=== PATIENT | female | born 1970 | race Caucasian/White ===

== ENCOUNTER 2022-07-16 12:12 | Observation (INO) | payer SELFPAY ==
--- NOTE | 2022-07-16 12:21 | ERPHSYRPT ---
- History of Present Illness Time Seen by Provider: 07/16/22 12:21 Source: patient Exam Limitations: no limitations Physician History: This is a 52-year-old white female who presents with right calf pain for 3 to 4 days. She has no history of any bleeding or clotting disorders. She is a long- term smoker. She has not taken any long trips either in the car or by plane. She did not injure her right calf. Patient has chronic shortness of breath and she thinks maybe in the last several days has been an increase in her shortness of breath. She has not had any chest pain. She has had no hemoptysis. She has not had any fevers. She denies cough. Method of Injury: other (No injury) Occurred: days ago (Approximately 3 to 4 days) Quality: constant, aching Severity of Pain-Max: moderate Severity of Pain-Current: moderate Lower Extremities Pain: leg: right (Calf) Modifying Factors: Improves With: movement Associated Symptoms: other (Right calf hurts to bear weight) Allergies/Adverse Reactions: No Known Drug Allergies Allergy (Verified 07/16/22 12:21) Home Medications: Duloxetine HCl 30 mg [Cymbalta 30 MG Capsule] 1 cap PO DAILY 07/16/22 [History] Travel Risk - International Travel Have you traveled outside of the country in past 3 weeks: No - Coronavirus Screening Are you exhibiting any of the following symptoms?: No Close contact with a COVID-19 positive Pt in past 14-21 Days: No - Review of Systems Constitutional: No Symptoms Eyes: No Symptoms Ears, Nose, & Throat: No Symptoms Respiratory: No Symptoms Cardiac: No Symptoms Abdominal/Gastrointestinal: No Symptoms Genitourinary Symptoms: No Symptoms Musculoskeletal: Other (Painful right calf) Skin: No Symptoms Neurological: No Symptoms Psychological: No Symptoms Endocrine: No Symptoms Hematologic/Lymphatic: No Symptoms Immunological/Allergic: No Symptoms All Other Systems: Reviewed and Negative - Past Medical History Pertinent Past Medical History: Yes - Past Surgical History Past Surgical History: Yes - Nursing Vital Signs Nursing Vital Signs: Initial Vital Signs Temperature 99 F 07/16/22 12:23 Pulse Rate 91 H 07/16/22 12:23 Respiratory Rate 20 07/16/22 12:23 Blood Pressure 149/96 07/16/22 12:23 O2 Sat by Pulse Oximetry 95 07/16/22 12:23 Pain Scale Pain Intensity 2 - Physical Exam General Appearance: no apparent distress, alert, anxiety, obese Eyes, Ears, Nose, Throat Exam: normal ENT inspection, moist mucous membranes Neck Exam: normal inspection, non-tender, supple, full range of motion Cardiovascular/Respiratory Exam: chest non-tender, no respiratory distress Gastrointestinal/Abdominal Exam: non-tender Back Exam: normal inspection, normal range of motion, No CVA tenderness, No vertebral tenderness Hips Exam: bilateral: non-tender, normal inspection, normal range of motion, no evidence of injury Legs Exam: right leg: soft tissue tenderness (Right posterior calf), left leg: non-tender, bilateral leg: normal inspection, normal range of motion, no evidence of injury Knees Exam: bilateral knee: non-tender, normal inspection, normal range of motion, no evidence of injury Ankle Exam: bilateral ankle: non-tender, normal inspection, normal range of motion, no evidence of injury Foot Exam: bilateral foot: non-tender, normal inspection, normal range of motion, no evidence of injury Neuro/Tendon Exam: normal sensation, normal motor functions, normal tendon fun ctions Mental Status Exam: alert, oriented x 3, cooperative Skin Exam: normal color, warm, dry SpO2 Interpretation: normal O2 Delivery: Room Air - Course Nursing assessment & vital signs reviewed: Yes EKG Interpreted by Me: RATE (80), Sinus Rhythm, NORMAL AXIS, NORMAL INTERVALS, NORMAL QRS, Non-specific ST Changes, Other (No acute ischemic changes on today's EKG.) Ordered Tests: Active Orders 24 hr Category Date Time Status EKG-ER Only STAT Care 07/16/22 12:57 Active IV Insertion STAT Care 07/16/22 12:57 Active Oxygen-ED Only Nasal Cannula 2 lpm Care 07/16/22 13:30 Active Pulse Oximetry (ED) STAT Care 07/16/22 12:57 Active CHEST WITH CONTRAST [CT] Stat Exams 07/16/22 13:32 Completed VENOUS UNILAT/LIMITED EXTREMIT [US] Stat Exams 07/16/22 13:32 Completed CBC W DIFF Stat Lab 07/16/22 12:50 Completed CMP Stat Lab 07/16/22 12:50 Completed D-DIMER QUANTITATIVE Stat Lab 07/16/22 12:50 Completed TROPONIN Q4H Lab 07/16/22 12:50 Completed TROPONIN Q4H Lab 07/16/22 17:00 Ordered TROPONIN Q4H Lab 07/16/22 21:00 Ordered Medication Summary Discontinued Medications Generic Name Dose Route Start Last Admin Trade Name Bradley PRN Reason Stop Dose Admin Enoxaparin Sodium 100 mg 07/16/22 14:35 07/16/22 14:41 Enoxaparin Sodium 120 Mg/0.8 Ml Syringe SQ 07/16/22 14:36 100 mg STAT STA Administration Enoxaparin Sodium Confirm 07/16/22 14:38 Enoxaparin Sodium 120 Mg/0.8 Ml Syringe Administered 07/16/22 14:39 Dose 120 mg SQ .STK-MED ONE Hydromorphone HCl 1 mg 07/16/22 12:59 07/16/22 13:02 Hydromorphone 1 Mg/1ml Inj 1 Mg/Ml Syringe IV 07/16/22 13:00 1 mg STAT ONE Administration Hydromorphone HCl Confirm 07/16/22 13:02 Hydromorphone 1 Mg/1ml Inj 1 Mg/Ml Syringe Administered 07/16/22 13:03 Dose 1 mg .ROUTE .STK-MED ONE Ondansetron HCl 4 mg 07/16/22 12:57 07/16/22 13:02 Ondansetron Hcl 4 Mg/2 Ml Vial IV 07/16/22 12:58 4 mg STAT ONE Administration Ondansetron HCl Confirm 07/16/22 13:01 Ondansetron Hcl 4 Mg/2 Ml Vial Administered 07/16/22 13:02 Dose 4 mg .ROUTE .STK-MED ONE Lab/Rad Data: Laboratory Result Diagrams 07/16/22 12:50 07/16/22 12:50 Laboratory Results 07/16/22 07/16/22 07/16/22 Range/Units 12:50 12:50 12:50 WBC (4.0-10.5) x10^3/uL RBC (4.1-5.4) x10^6/uL Hgb (12.0-16.0) g/dL Hct (35-47) % MCV (78-100) fL MCH (26-32) pg MCHC (32-36) g/dL RDW (11.5-14.0) % Plt Count (150-450) x10^3/uL MPV (7.5-11.0) fL Gran % (36.0-66.0) % Immature Gran % (Auto) (0.00-0.4) % Nucleat RBC Rel Count (0.00-0.1) % Eos # (Auto) (0-0.5) x10^3/uL Immature Gran # (Auto) (0.00-0.03) x10^3u/L Absolute Lymphs (auto) (1.0-4.6) x10^3/uL Absolute Monos (auto) (0.0-1.3) x10^3/uL Absolute Nucleated RBC (0.00-0.01) x10^3u/L Lymphocytes % (24.0-44.0) % Monocytes % (0.0-12.0) % Eosinophils % (0.00-5.0) % Basophils % (0.0-0.4) % Absolute Granulocytes (1.4-6.9) x10^3/uL Basophils # (0-0.4) x10^3/uL D-Dimer 12.08 H* (0.0-0.50) mg/L Sodium 137 (137-145) mmol/L Potassium 4.5 (3.5-5.1) mmol/L Chloride 105 (98-107) mmol/L Carbon Dioxide 25 (22-30) mmol/L Anion Gap 11.1 (5-15) MEQ/L BUN 20 H (7-17) mg/dL Creatinine 0.66 (0.52-1.04) mg/dL Estimated GFR > 60.0 ML/MIN Glucose 113 H (74-106) mg/dL Calcium 9.4 (8.4-10.2) mg/dL Total Bilirubin 0.60 (0.2-1.3) mg/dL AST 32 (14-36) U/L ALT 50 H (0-35) U/L Alkaline Phosphatase 86 (38-126) U/L Troponin I 0.014 (0.000-0.034) ng/mL Serum Total Protein 7.5 (6.3-8.2) g/dL Albumin 4.5 (3.5-5.0) g/dL 07/16/22 Range/Units 12:50 WBC 11.6 H (4.0-10.5) x10^3/uL RBC 4.92 (4.1-5.4) x10^6/uL Hgb 14.6 (12.0-16.0) g/dL Hct 44.2 (35-47) % MCV 89.8 (78-100) fL MCH 29.7 (26-32) pg MCHC 33.0 (32-36) g/dL RDW 12.7 (11.5-14.0) % Plt Count 192 (150-450) x10^3/uL MPV 9.5 (7.5-11.0) fL Gran % 71.2 H (36.0-66.0) % Immature Gran % (Auto) 0.3 (0.00-0.4) % Nucleat RBC Rel Count 0.0 (0.00-0.1) % Eos # (Auto) 0.31 (0-0.5) x10^3/uL Immature Gran # (Auto) 0.04 H (0.00-0.03) x10^3u/L Absolute Lymphs (auto) 1.96 (1.0-4.6) x10^3/uL Absolute Monos (auto) 0.98 (0.0-1.3) x10^3/uL Absolute Nucleated RBC 0.00 (0.00-0.01) x10^3u/L Lymphocytes % 16.9 L (24.0-44.0) % Monocytes % 8.5 (0.0-12.0) % Eosinophils % 2.7 (0.00-5.0) % Basophils % 0.4 (0.0-0.4) % Absolute Granulocytes 8.25 H (1.4-6.9) x10^3/uL Basophils # 0.05 (0-0.4) x10^3/uL D-Dimer (0.0-0.50) mg/L Sodium (137-145) mmol/L Potassium (3.5-5.1) mmol/L Chloride (98-107) mmol/L Carbon Dioxide (22-30) mmol/L Anion Gap (5-15) MEQ/L BUN (7-17) mg/dL Creatinine (0.52-1.04) mg/dL Estimated GFR ML/MIN Glucose (74-106) mg/dL Calcium (8.4-10.2) mg/dL Total Bilirubin (0.2-1.3) mg/dL AST (14-36) U/L ALT (0-35) U/L Alkaline Phosphatase (38-126) U/L Troponin I (0.000-0.034) ng/mL Serum Total Protein (6.3-8.2) g/dL Albumin (3.5-5.0) g/dL - Progress Progress: improved Progress Note: 07/16/22 14:51 Venous ultrasound right lower extremity shows popliteal and femoral DVT. CTA of chest shows extensive, nonoccluding, bilateral pulmonary emboli left side greater than right. There is no consolidation or infarction present. Medical decision making: I spoke with Dr. Lopez who is on for service. The plan is to place the patient in observation and to provide her with Lovenox subcutaneously. Patient will be on a monitored bed overnight and will receive Lovenox and repeat labs in the morning. Discussed with : Rosalinda Counseled pt/family regarding: lab results, diagnosis, rad results - Departure Departure Disposition: Home Clinical Impression: Bilateral pulmonary embolism, Right leg DVT Condition: Stable Critical Care Time: Yes Critical Care Time(excluding separately billable procedures): Critical 30-74 mins (D minutes) Referrals: ARTHUR OWEN [Primary Care Provider] - Follow up/PCP as directed
[2022-07-16] MEDS ORDERED: Zofran 4 MG/2 ML VIAL IV ONE (12:57)
[2022-07-16] MEDS ORDERED: Hydromorphone 1 mg/ml Injection IV ONE ×2 (12:59→16:13)
[2022-07-16] MEDS ORDERED: Zofran 4 MG/2 ML VIAL ONE (13:01)
[2022-07-16] MEDS ORDERED: Hydromorphone 1 mg/ml Injection ONE ×2 (13:02→16:15)
[2022-07-16 13:06] LABS: Absolute Neutrophil Ct (ANC) 8.25 x10^3/uL (1.4-6.9); Basophil (Absolute #) 0.05 x10^3/uL (0-0.4); Eosinophil % 2.7 % (0.00-5.0); Eosinophil (Absolute #) 0.31 x10^3/uL (0-0.5); Hematocrit 44.2 % (35-47); Hemoglobin 14.6 g/dL (12.0-16.0); Lymphocyte (Absolute #) 1.96 x10^3/uL (1.0-4.6); Lymphocytes % 16.9 % (24.0-44.0); Mean Cell Volume 89.8 fL (78-100); Mean Corpuscular Hemoglobin 29.7 pg (26-32); Mean Platelet Volume 9.5 fL (7.5-11.0); Monocyte (Absolute #) 0.98 x10^3/uL (0.0-1.3); Monocytes % 8.5 % (0.0-12.0); Neutrophil % 71.2 % (36.0-66.0); Platelet Count 192 x10^3/uL (150-450); Red Blood Count 4.92 x10^6/uL (4.1-5.4); Red Cell Distribution Width 12.7 % (11.5-14.0); White Blood Count 11.6 x10^3/uL (4.0-10.5)
[2022-07-16 13:13] LABS: ALBUMIN 4.5 g/dL (3.5-5.0); ALKALINE PHOSPHATASE 86 U/L (38-126); ANION GAP 11.1 MEQ/L (5-15); BLOOD UREA NITROGEN 20 mg/dL (7-17); CHLORIDE 105 mmol/L (98-107); Calcium 9.4 mg/dL (8.4-10.2); Carbon Dioxide 25 mmol/L (22-30); Creatinine 1 0.66 mg/dL (0.52-1.04); EST GLOMERULAR FILTRATION RATE > 60.0 ML/MIN; Glucose 113 mg/dL (74-106); Potassium 4.5 mmol/L (3.5-5.1); SGOT/AST 32 U/L (14-36); SGPT/ALT 50 U/L (0-35); SODIUM 137 mmol/L (137-145); Total Protein 7.5 g/dL (6.3-8.2)
--- NOTE | 2022-07-16 14:08 | XRAY ---
Indication: Pain. Two-dimensional sonogram and color Doppler imaging of the major venous vessels of the right leg performed. Comparison: None Occluding thrombus seen in the mid to distal femoral and popliteal veins. No thrombus seen in the remaining common femoral, deep femoral, proximal femoral, and posterior tibial veins. Impression: Occluding DVT in the femoral and popliteal veins.
[2022-07-16] MEDS ORDERED: ENOXAPARIN SODIUM SQ STA (14:35)
[2022-07-16] MEDS ORDERED: ENOXAPARIN SODIUM SQ ONE (14:38)
--- NOTE | 2022-07-16 14:47 | XRAY ---
Indication: Short of breath and elevated d-dimer. Right leg DVT. Multiple contiguous axial images obtained through the chest using 100 cc Isovue 370 contrast and PE protocol. Comparison: None Good opacification of the pulmonary arteries to include the lobar and segmental branches. Distal left main pulmonary artery demonstrates nonoccluding pulmonary emboli extending into all lobar and segmental branches. Additional nonoccluding pulmonary emboli seen in the lobar/segmental branches of the right upper and right lower lobes. Heart is not enlarged. Aorta is normal in course and caliber. Small subcarinal and tiny right infrahilar calcified nodes. No pathologic mediastinal/hilar lymphadenopathy. Lungs demonstrates mild bilateral dependent atelectasis and right hemidiaphragm elevation. Right middle lobe demonstrates minimal subpleural fibrosis/scarring and tiny calcified granuloma. No suspicious pulmonary mass, infiltrate, consolidation, or effusion. Bony thorax intact with minimal degenerative changes throughout the spine. Limited upper abdomen demonstrates diffuse fatty liver. Impression: 1. Extensive nonoccluding bilateral pulmonary emboli, left lung greater than right. No consolidation/infarct. 2. Incidental right middle lobe fibrosis/scarring, right hemidiaphragm elevation, fatty liver, and old granulomatous disease.
[2022-07-16 15:28] LABS: INFLUENZA A NEGATIVE (NEGATIVE); INFLUENZA B NEGATIVE (NEGATIVE); RESPIRATORY SYNCTIAL VIRUS NEGATIVE (Negative); SARS-CoV-2 Xpert Express NEGATIVE (NEGATIVE)
[2022-07-16] MEDS ORDERED: TYLENOL 325 MG PO PRN (16:29)
[2022-07-16] MEDS ORDERED: Zofran 4 MG/2 ML VIAL IV PRN (16:29)
[2022-07-16] MEDS: Cymbalta 30 MG Capsule PO SCH (17:13)
[2022-07-16] MEDS: Hydromorphone 1 mg/ml Injection IV PRN (21:14)
[2022-07-16] MEDS ORDERED: ENOXAPARIN SODIUM SQ SCH (22:00)
[2022-07-17] MEDS: ENOXAPARIN SODIUM SQ SCH ×2 (00:15→09:06)
[2022-07-17] MEDS: Hydromorphone 1 mg/ml Injection IV PRN ×2 (02:55→08:38)
[2022-07-17 04:47] LABS: Absolute Neutrophil Ct (ANC) 7.16 x10^3/uL (1.4-6.9); Basophil (Absolute #) 0.06 x10^3/uL (0-0.4); Eosinophil % 3.8 % (0.00-5.0); Eosinophil (Absolute #) 0.41 x10^3/uL (0-0.5); Hematocrit 43.3 % (35-47); Hemoglobin 13.9 g/dL (12.0-16.0); Lymphocyte (Absolute #) 2.15 x10^3/uL (1.0-4.6); Lymphocytes % 19.8 % (24.0-44.0); Mean Cell Volume 92.3 fL (78-100); Mean Corpuscular Hemoglobin 29.6 pg (26-32); Mean Corpuscular Hgb Concent. 32.1 g/dL (32-36); Mean Platelet Volume 9.3 fL (7.5-11.0); Monocyte (Absolute #) 1.06 x10^3/uL (0.0-1.3); Monocytes % 9.7 % (0.0-12.0); Neutrophil % 65.7 % (36.0-66.0); Platelet Count 186 x10^3/uL (150-450); Red Blood Count 4.69 x10^6/uL (4.1-5.4); Red Cell Distribution Width 12.7 % (11.5-14.0); White Blood Count 10.9 x10^3/uL (4.0-10.5)
[2022-07-17 05:12] LABS: ALBUMIN 4.2 g/dL (3.5-5.0); ALKALINE PHOSPHATASE 79 U/L (38-126); ANION GAP 9.3 MEQ/L (5-15); BLOOD UREA NITROGEN 21 mg/dL (7-17); CHLORIDE 100 mmol/L (98-107); Calcium 8.7 mg/dL (8.4-10.2); Carbon Dioxide 29 mmol/L (22-30); Creatinine 1 0.77 mg/dL (0.52-1.04); EST GLOMERULAR FILTRATION RATE > 60.0 ML/MIN; Glucose 125 mg/dL (74-106); Potassium 4.2 mmol/L (3.5-5.1); SGOT/AST 31 U/L (14-36); SGPT/ALT 47 U/L (0-35); SODIUM 134 mmol/L (137-145); Total Protein 7.3 g/dL (6.3-8.2)
[2022-07-17] MEDS: Cymbalta 30 MG Capsule PO SCH ×2 (08:37→08:48)
--- NOTE | 2022-07-17 08:40 | PCM.HP ---
History of Present Illness - Chief Complaint Chief Complaint: Bilateral pulmonary emboli History of Present Illness: is a 52 year old female who presented to the ER with pain in her right calf, worsening in severity for 3-4 days prior to admission. She also notes increasing shortness of breath, mild pain in her chest. she has a remote history of lung cancer in remission, continues to smoke and currently has no health insurance. she denies any HRT, only takes cymbalta for depression. - Review of Systems Constitutional: No Fever, No Chills Respiratory: Short Of Breath Cardiac: Chest Pain Abdominal/Gastrointestinal: No Abdominal Pain, No Nausea, No Vomiting, No Diarrhea Musculoskeletal: Other (right calf pain) Skin: No Rash All Other Systems: Reviewed and Negative Medications & Allergies Home Medications: Home Medication List Duloxetine HCl 30 mg [Cymbalta 30 MG Capsule] 30 mg PO 0900,1700 07/16/22 [History Confirmed 07/16/22] Allergies/Adverse Reactions: Allergies Allergy/AdvReac Type Severity Reaction Status Date / Time No Known Drug Allergies Allergy Verified 07/16/22 12:21 - Past Medical History Past Medical History: Yes Neurological History: No Pertinent History ENT History: No Pertinent History Cardiac History: No Pertinent History Respiratory History: Lung Cancer Musculoskelatal History: No Pertinent History GI Medical History: No Pertinent History History: No Pertinent History Pyscho-Social History: Depression Reproductive Disorders: No Pertinent History Comment: Prediabetic, low vitamin D levels, dvt right lower extemety, bilateral PE - Female History Hx Last Menstrual Period: hysterectomy Are you now?: No - Past Surgical History Past Surgical History: Yes (Right lung lobe removed) Cardiac History: No Pertinent History Respiratory Surgery: Lobectomy GI Surgical History: No Pertinent History Genitourinary Surgical Hx: No Pertinent History Musculskeletal Surgical Hx: No Pertinent History Female Surgical History: Hysterectomy Other Surgical History: Right lower lobe lobectomy - Social History Smoking Status: Current every day smoker How long have you smoked: 30 yrs Exposure to second hand smoke: Yes Alcohol: Weekly Drug Use: none - Physical Exam Vital Signs: Vital Signs - 24 hr Temp Pulse Resp BP Pulse Ox 07/17/22 07:50 97.6 F 55 L 16 132/62 99 07/17/22 06:36 96 07/17/22 04:00 21 07/17/22 03:54 98.2 F 93 H 21 119/55 94 L 07/17/22 00:00 18 07/16/22 23:29 96.0 F 101 H 18 111/58 97 07/16/22 20:00 97.6 F 99 H 20 108/68 99 07/16/22 19:43 93 L 07/16/22 16:51 94 L 07/16/22 16:45 97.7 F 99 H 18 133/71 94 L 07/16/22 16:30 97.7 F 99 H 21 133/71 94 L 07/16/22 16:00 88 18 122/82 95 07/16/22 15:00 92 H 16 127/88 96 07/16/22 14:00 96 H 18 121/91 98 07/16/22 13:10 76 18 121/74 92 L 07/16/22 13:01 97 07/16/22 12:23 99 F 91 H 20 149/96 95 General Appearance: no apparent distress, alert Neurologic Exam: alert, oriented x 3, cooperative, normal mood/affect, nml cerebellar function, nml station & gait, sensation nml, No motor deficits Respiratory Exam: normal breath sounds, wheezing, No respiratory distress Cardiovascular Exam: regular rate/rhythm, normal heart sounds, normal peripheral pulses Gastrointestinal/Abdomen Exam: soft, normal bowel sounds, No tenderness, No mass Extremity Exam: swelling, tenderness (right calf) Results - Labs Lab/Micro Results: Lab Results-Last 24 Hours 07/16/22 07/16/22 07/16/22 Range/Units 12:50 12:50 12:50 WBC 11.6 H (4.0-10.5) x10^3/uL RBC 4.92 (4.1-5.4) x10^6/uL Hgb 14.6 (12.0-16.0) g/dL Hct 44.2 (35-47) % MCV 89.8 (78-100) fL MCH 29.7 (26-32) pg MCHC 33.0 (32-36) g/dL RDW 12.7 (11.5-14.0) % Plt Count 192 (150-450) x10^3/uL MPV 9.5 (7.5-11.0) fL Gran % 71.2 H (36.0-66.0) % Immature Gran % (Auto) 0.3 (0.00-0.4) % Nucleat RBC Rel Count 0.0 (0.00-0.1) % Eos # (Auto) 0.31 (0-0.5) x10^3/uL Immature Gran # (Auto) 0.04 H (0.00-0.03) x10^3u/L Absolute Lymphs (auto) 1.96 (1.0-4.6) x10^3/uL Absolute Monos (auto) 0.98 (0.0-1.3) x10^3/uL Absolute Nucleated RBC 0.00 (0.00-0.01) x10^3u/L Lymphocytes % 16.9 L (24.0-44.0) % Monocytes % 8.5 (0.0-12.0) % Eosinophils % 2.7 (0.00-5.0) % Basophils % 0.4 (0.0-0.4) % Absolute Granulocytes 8.25 H (1.4-6.9) x10^3/uL Basophils # 0.05 (0-0.4) x10^3/uL D-Dimer 12.08 H* (0.0-0.50) mg/L Sodium 137 (137-145) mmol/L Potassium 4.5 (3.5-5.1) mmol/L Chloride 105 (98-107) mmol/L Carbon Dioxide 25 (22-30) mmol/L Anion Gap 11.1 (5-15) MEQ/L BUN 20 H (7-17) mg/dL Creatinine 0.66 (0.52-1.04) mg/dL Estimated GFR > 60.0 ML/MIN Glucose 113 H (74-106) mg/dL Calcium 9.4 (8.4-10.2) mg/dL Total Bilirubin 0.60 (0.2-1.3) mg/dL AST 32 (14-36) U/L ALT 50 H (0-35) U/L Alkaline Phosphatase 86 (38-126) U/L Troponin I (0.000-0.034) ng/mL Serum Total Protein 7.5 (6.3-8.2) g/dL Albumin 4.5 (3.5-5.0) g/dL Influenza Type A Ag (NEGATIVE) Influenza Type B Ag (NEGATIVE) RSV (PCR) (Negative) SARS-CoV-2 (PCR) (NEGATIVE) 07/16/22 07/16/22 07/16/22 Range/Units 12:50 14:50 17:15 WBC (4.0-10.5) x10^3/uL RBC (4.1-5.4) x10^6/uL Hgb (12.0-16.0) g/dL Hct (35-47) % MCV (78-100) fL MCH (26-32) pg MCHC (32-36) g/dL RDW (11.5-14.0) % Plt Count (150-450) x10^3/uL MPV (7.5-11.0) fL Gran % (36.0-66.0) % Immature Gran % (Auto) (0.00-0.4) % Nucleat RBC Rel Count (0.00-0.1) % Eos # (Auto) (0-0.5) x10^3/uL Immature Gran # (Auto) (0.00-0.03) x10^3u/L Absolute Lymphs (auto) (1.0-4.6) x10^3/uL Absolute Monos (auto) (0.0-1.3) x10^3/uL Absolute Nucleated RBC (0.00-0.01) x10^3u/L Lymphocytes % (24.0-44.0) % Monocytes % (0.0-12.0) % Eosinophils % (0.00-5.0) % Basophils % (0.0-0.4) % Absolute Granulocytes (1.4-6.9) x10^3/uL Basophils # (0-0.4) x10^3/uL D-Dimer (0.0-0.50) mg/L Sodium (137-145) mmol/L Potassium (3.5-5.1) mmol/L Chloride (98-107) mmol/L Carbon Dioxide (22-30) mmol/L Anion Gap (5-15) MEQ/L BUN (7-17) mg/dL Creatinine (0.52-1.04) mg/dL Estimated GFR ML/MIN Glucose (74-106) mg/dL Calcium (8.4-10.2) mg/dL Total Bilirubin (0.2-1.3) mg/dL AST (14-36) U/L ALT (0-35) U/L Alkaline Phosphatase (38-126) U/L Troponin I 0.014 < 0.012 (0.000-0.034) ng/mL Serum Total Protein (6.3-8.2) g/dL Albumin (3.5-5.0) g/dL Influenza Type A Ag NEGATIVE (NEGATIVE) Influenza Type B Ag NEGATIVE (NEGATIVE) RSV (PCR) NEGATIVE (Negative) SARS-CoV-2 (PCR) NEGATIVE (NEGATIVE) 07/16/22 07/17/22 07/17/22 Range/Units 21:00 04:35 04:35 WBC 10.9 H (4.0-10.5) x10^3/uL RBC 4.69 (4.1-5.4) x10^6/uL Hgb 13.9 (12.0-16.0) g/dL Hct 43.3 (35-47) % MCV 92.3 (78-100) fL MCH 29.6 (26-32) pg MCHC 32.1 (32-36) g/dL RDW 12.7 (11.5-14.0) % Plt Count 186 (150-450) x10^3/uL MPV 9.3 (7.5-11.0) fL Gran % 65.7 (36.0-66.0) % Immature Gran % (Auto) 0.4 (0.00-0.4) % Nucleat RBC Rel Count 0.0 (0.00-0.1) % Eos # (Auto) 0.41 (0-0.5) x10^3/uL Immature Gran # (Auto) 0.04 H (0.00-0.03) x10^3u/L Absolute Lymphs (auto) 2.15 (1.0-4.6) x10^3/uL Absolute Monos (auto) 1.06 (0.0-1.3) x10^3/uL Absolute Nucleated RBC 0.00 (0.00-0.01) x10^3u/L Lymphocytes % 19.8 L (24.0-44.0) % Monocytes % 9.7 (0.0-12.0) % Eosinophils % 3.8 (0.00-5.0) % Basophils % 0.6 (0.0-0.4) % Absolute Granulocytes 7.16 H (1.4-6.9) x10^3/uL Basophils # 0.06 (0-0.4) x10^3/uL D-Dimer (0.0-0.50) mg/L Sodium 134 L (137-145) mmol/L Potassium 4.2 (3.5-5.1) mmol/L Chloride 100 (98-107) mmol/L Carbon Dioxide 29 (22-30) mmol/L Anion Gap 9.3 (5-15) MEQ/L BUN 21 H (7-17) mg/dL Creatinine 0.77 (0.52-1.04) mg/dL Estimated GFR > 60.0 ML/MIN Glucose 125 H (74-106) mg/dL Calcium 8.7 (8.4-10.2) mg/dL Total Bilirubin 0.60 (0.2-1.3) mg/dL AST 31 (14-36) U/L ALT 47 H (0-35) U/L Alkaline Phosphatase 79 (38-126) U/L Troponin I < 0.012 (0.000-0.034) ng/mL Serum Total Protein 7.3 (6.3-8.2) g/dL Albumin 4.2 (3.5-5.0) g/dL Influenza Type A Ag (NEGATIVE) Influenza Type B Ag (NEGATIVE) RSV (PCR) (Negative) SARS-CoV-2 (PCR) (NEGATIVE) - Radiology Impressions Radiology Exams & Impressions: Radiology Procedures Category Date Time Status CHEST WITH CONTRAST [CT] Stat Exams 07/16/22 13:32 Completed VENOUS UNILAT/LIMITED EXTREMIT [US] Stat Exams 07/16/22 13:32 Completed - Other Procedures and Tests Respiratory Therapy 07/16/22 16:51 Oxygen NASAL CANNULA 2 lpm Assessment/Plan (1) Bilateral pulmonary embolism Current Visit: Yes Status: Acute Assessment & Plan: continue lovenox Code(s): I26.99 - OTHER PULMONARY EMBOLISM WITHOUT ACUTE COR PULMONALE (2) Right leg DVT Current Visit: Yes Status: Acute Assessment & Plan: lovenox, recommend eliquis upon discharge but cost will be a concern. Code(s): I82.401 - ACUTE EMBOLISM AND THOMBOS UNSP DEEP VEINS OF R LOW EXTREM (3) Wheezing Current Visit: Yes Status: Acute Assessment & Plan: add nebulizer treatments at this time. Code(s): R06.2 - WHEEZING
[2022-07-17] MEDS: DUONEB 0.5-3 MG/3 ml Neb IH SCH ×2 (09:36→13:10)
[2022-07-17] MEDS: NORCO 5/325 MG PO PRN ×2 (11:34→15:38)
--- NOTE | 2022-07-17 14:29 | PCM.DCORD ---
- Discharge Disposition: Home, Self-Care Condition: Stable Prescriptions: New Apixaban [Eliquis 5 mg Tablet] 10 mg PO BID #70 tablet Hydrocodone/Acetaminophen [Hydrocodone-Acetamin 5-325 mg] 1 tab PO Q6HPRN PRN #20 tablet MDD 4 PRN Reason: Pain Continue Duloxetine HCl 30 mg [Cymbalta 30 MG Capsule] 30 mg PO 0900,1700 Instructions: Pulmonary Embolism (Blood Clot in the Lungs), Deep Vein Thrombosis (Blood Clot in the Legs) Additional Instructions: YOU CAN CALL [phone] TO SEE IF YOU QUALIFY FOR ANY ASSISTANCE WEAR 2L/NC AT ALL TIMES, CALL [facility] AT [phone] WHEN YOU ARE ON YOUR WAY HOME SO THEY CAN DELIVER YOUR HOME CONCENTRATOR Follow up with: ARTHUR OWEN [Primary Care Provider] - 1 Week
[2022-07-17 17:36] VITALS: BP 133/66; PULSE 103; O2SAT 93
== END 2022-07-17 16:54 | disposition home or self-care (01) ==
LOC: ED 12:12 → MED SURG 16:24
PROVIDERS: ADMIT Family Medicine; ATTEND Family Medicine
DX: I26.99 Other pulmonary embolism without acute cor pulmonale (principal); I82.401 Acute embolism and thrombosis of unspecified deep veins of right lower extremity; R06.2 Wheezing; R07.9 Chest pain, unspecified; R73.03 Prediabetes; Z72.0 Tobacco use; Z79.899 Other long term (current) drug therapy; Z20.828 Contact with and (suspected) exposure to other viral communicable diseases; Z85.118 Personal history of other malignant neoplasm of bronchus and lung
CPT/HCPCS: 0241U; 36000; 36415; 71260; 80053; 84484; 85025; 85379; 93005; 93268; 93971; 94640; 94760; 94762; 96372; 96374; 96375; 96376; 99285; 99291; G0378; J1170; J1650; J2405; A9270-GY